=== PATIENT | female | born 1935 | race Caucasian/White ===

== ENCOUNTER 2020-04-10 10:33 | Inpatient (IN) ==
--- NOTE | 2020-04-07 14:34 | History & Physical Report ---
"Date of Service April 07, 2020 Assessment & Plan (1) Primary osteoarthritis of left knee: Treatment options were discussed. She has failed conservative therapy as above. Risks, benefits and alternatives to surgery including but not limited to infection, DVT, pain, stiffness, need for revision surgery, damage to blood vessels, damage to nerves, PE, , were discussed with the patient and they wish to proceed. Plan will be for left total knee arthroplasty at [facility] on 04/10/20. Will plan on Aspirin 81mg BID x 30 days post op for DVT prophylaxis. Will plan on inpatient rehab at [facility] post discharge from the hospital. All questions answered. She will follow up post operatively. COVID testing completed today. History of Present Illness Chief Complaint: Left knee pain Primary Care Provider: Anand Summers MD Patient is an 84 year old female with PMHx significant for CAD with ID, HTN, high cholesterol, GERD with long standing history of left knee pain. She is unable to do the things she wants to do due to the knee pain. She has failed conservative therapy including antiinflammatories, rehab, activity modification, and cortisone injections. She would like to proceed with left knee replacement. Patient denies headaches, sweats, fevers, chills, double vision, blurred vision, cough, sore throat, dysphagia, chest pain, sob, wheezing, n/v/d/c, numbness, tingling, fatigue, urinary symptoms, mood disorders. ROS positive for left knee pain and stiffness. Allergies Allergy/AdvReac Type Severity Reaction Status Date / Time Penicillins Allergy Intermediate hives Verified 04/04/20 11:34 Home Medications Home Medications Medication Instructions Recorded Confirmed Type amlodipine 10 mg PO QAM 11/28/19 04/04/20 History ascorbic acid (vitamin C) [Vitamin 1 g PO QAM 11/28/19 04/04/20 History C] carvedilol 6.25 mg PO BID 11/28/19 04/04/20 History clonidine HCl 0.1 mg PO QAM 11/28/19 04/04/20 History cyanocobalamin (vitamin B-12) 1,000 mcg PO QAM 11/28/19 04/04/20 History [Vitamin B-12] lisinopril 40 mg PO QAM 11/28/19 04/04/20 History omega 6-cbc-tjp-fish oil [Fish Oil] 1 cap PO QAM 11/28/19 04/04/20 History rosuvastatin [Crestor] 5 mg PO QDD 11/28/19 04/04/20 History aspirin [Aspirin Low Dose] 81 mg PO Q OTHER DAY 12/14/19 04/04/20 History Past Med/Surg History Social History Preferred Language: Russian Communication Ability: Effective Clinical Psychologist Private Practice Required: No Beliefs That Will Affect Care: None Current Living Situation: Spouse Current Living Situation Comment: LIVES IN [facility] (PLANS TO GO TO REHAB [facility]) Feels Safe at Home: Yes Smoking Status: Never smoker Second Hand Exposure: Yes ( A CHILD) ; Hx Alcohol Use: No Hx Substance Use: No Review of Systems All systems reviewed & are unremarkable except as noted in HPI & below Physical Exam Constitutional: well developed and well nourished; no acute distress Eyes: PERRL, conjunctivae normal, anicteric sclerae ENMT: external ear and nose normal, oropharynx normal Neck: trachea midline, no thyromegaly Respiratory: normal respiratory effort, lungs clear to auscultation Cardiovascular: RRR, no murmur, no edema Musculoskeletal: Left knee: ROM 0-120 with crepitation on ROM. Mild swelling with tenderness medially and laterally. Stable to valgus and varus stress tests Skin: no rashes, warm and dry Neurologic: patellar DTR's 2+ bilat, sensation intact Psychiatric: A+Ox3, euthymic affect Results & Data Laboratory Results Name: RANJANA LARSEN Acct: [id number] Status: REG CLI : 1935 [facility] Date: 04/07/20 Age: 84 Sex: F Dis Date: Loc: Laboratory Main [place] Spec : [id number] Collected: 04/07/20 Received: 04/07/[address]: Lamont Zimmer M.D. Ordered: CBCD Test Result Flag Reference Site WBC | 7.29 | | 4.8-10.8 K/uL | RBC | 5.07 | | 4.2-5.4 M/uL | Hgb | 15.3 | | 12.0-16.0 g/dL | Hct | 47.8 | H | 37-47 % | MCV | 94.3 | | 80-100 fL | MCH | 30.2 | | 25-34 pg | MCHC | 32.0 | | 32-36 g/dL | RDW Std Dev | 47.0 | H | 36.4-46.3 fL | RDW Coeff Patria | 13.8 | | 11.5-14.5 % | Plt | 157 | | 130-400 K/uL | MPV | 11.4 | H | 7.4-10.4 fL | Neut % (auto) | 58.2 | | % | Lymp % (auto) | 30.2 | | % | Carlisle % (auto) | 10.0 | | % | Eos % (auto) | 1.2 | | % | Baso % (auto) | 0.1 | | % | Imm Gran % (aut | 0.3 | | % | | IG parameter reflects the combination of Metas, Myelos and | Promyelocytes. Neut # (auto) | 4.24 | | 1.4-6.5 K/uL | Lymph # (auto) | 2.20 | | 1.2-3.4 K/uL | Carlisle # (auto) | 0.73 | H | 0.11-0.59 K/uL | Eos # (auto) | 0.09 | | 0-0.5 K/uL | Baso # (auto) | 0.01 | | 0-0.2 K/uL | Imm Gran # (aut | 0.02 | | 0.00-0.02 K/uL | Name: RANJANA LARSEN Acct: [id number] Status: REG CLI : 1935 [facility] Date: 04/07/20 Age: 84 Sex: F Dis Date: Loc: Laboratory Main [place] Spec : [id number] Collected: 04/07/20 Received: 04/07/[address]: Lamont Zimmer M.D. Ordered: BMP, Chem Hemolysis, Alb Queries: Is Patient Fasting? No Test Result Flag Reference Site Na | 139 | | 136-145 mmol/L | K | 4.1 | | 3.5-5.1 mmol/L | Chemistry Hemolysis | | | | | Slight hemolysis is detected which may affect Potassium, | Magnesium, AST and CK. If clinically indicated, these | should be recollected. Cl | 105 | | 98-107 mmol/L | CO2 | 27 | | 21-32 mmol/L | Gap | 8.0 | | 3-11 | BUN | 21 | H | 7-18 mg/dl | Creat | 0.71 | | 0.6-1.2 mg/dl | EGFR AA | 91.3 | | | | Units: ml/min per 1.73 meters squared | | The estimated GFR (CKD-EPI equation) has not been validated | for inpatient settings and may not be an accurate reflection | of renal function in critically ill patients or those with | rapidly changing renal function (e.g. ELIESER). EGFR NICOLE | 78.8 | | | | Units: ml/min per 1.73 meters squared | | The estimated GFR (CKD-EPI equation) has not been validated | for inpatient settings and may not be an accurate reflection | of renal function in critically ill patients or those with | rapidly changing renal function (e.g. ELIESER). BUN Creat Ratio | 28.9 | H | 10-20 | Glu | 93 | | 70-99 mg/dl | Ca | 9.3 | | 8.5-10.1 mg/dl | Alb | 3.6 | | 3.4-5.0 gm/dl | Diagnostic Findings Left knee radiographs: Bone on bone lateral compartment with periarticular osteophyte formation. Spurring and joint space narrowing PF joint."
--- NOTE | 2020-04-08 09:07 | Anesthesiology Consultation ---
Date of Service April 08, 2020 Assessment & Plan Chart Review Chart Review: Acceptable Risk for Surgery and Patient NOT seen in Pre Admission Testing low risk screening, lives in [facility], thus will need AM rapid testing. Consults Requested none History Surgery Operation Date: 04/10/20 13:00 Proposed Procedures p Left Total Knee Arthroplasty - Lamont Zimmer MD Height/Weight Height: 5 ft 2 in Weight: 81.647 kg Allergies Allergy/AdvReac Type Severity Reaction Status Date / Time Penicillins Allergy Intermediate hives Verified 04/04/20 11:34 Medications Home Medications Medication Instructions Recorded Confirmed Last Taken amlodipine 10 mg PO QAM 11/28/19 04/04/20 Unknown ascorbic acid (vitamin C) [Vitamin 1 g PO QAM 11/28/19 04/04/20 Unknown C] carvedilol 6.25 mg PO BID 11/28/19 04/04/20 Unknown clonidine HCl 0.1 mg PO QAM 11/28/19 04/04/20 Unknown cyanocobalamin (vitamin B-12) 1,000 mcg PO QAM 11/28/19 04/04/20 Unknown [Vitamin B-12] lisinopril 40 mg PO QAM 11/28/19 04/04/20 Unknown omega 2-rxj-qfs-fish oil [Fish Oil] 1 cap PO QAM 11/28/19 04/04/20 Unknown rosuvastatin [Crestor] 5 mg PO QDD 11/28/19 04/04/20 Unknown aspirin [Aspirin Low Dose] 81 mg PO Q OTHER DAY 12/14/19 04/04/20 Unknown Past Medical History Medical History (Updated 04/08/20 @ 09:05 by Ana María Greene DO) CAD (coronary artery disease) S/P CO 2004. No stents placed with cardiac cath; discharged from cardiology 08/2018 (last note says to f/u PRN). Medically managed by PCP. Denies any chest pain or SOB. 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 Hyperlipidemia Hypertension Osteoarthritis Renal calculus Spinal stenosis Urinary urgency with incontinence Vaginal prolapse without uterine prolapse Exercise / Class Metabolic Activity denies SOB with walking, does not use stairs Past Family History Family History Uncle Family history of diabetes mellitus Past Surgical History Surgical History (Updated 04/08/20 @ 09:05 by Ana María Greene DO) History of cardiac cath No stents, 2004. History of partial hysterectomy History of reconstructive repair of rectocele Hx of cataract extraction Hx of cholecystectomy Hx of colonoscopy Hx of total knee arthroplasty S/P carpal tunnel release left Slow to wake up after anesthesia Social History Smoking Status: Never smoker Do You Dip or Chew Tobacco: No Hx Alcohol Use: No Hx Substance Use: No Testing Laboratory Results H/H 15.3/47.8 PLT 157 INR 1.0 K 4.1 BUN 21 Creat 0.71 gluc 93 Electrocardiogram Date: 12/14/19 Findings: + NSR @ (65bpm) and + CO (anterior, infarct age indetermined (known from 2004)) LAD PVCs noted Chest X-Ray Date: 12/14/19 Findings: + NAD and + R hemidiaphragm elevation; no pulmonary vascular congestion
[~2020-04-10 10:33] MED LIST: ACETAMINOPHEN 500 MG TAB PO SCH; BUPIVACAINE 0.5 % 5 MG/1 ML PF 10ML VIAL ONE; CLINDAMYCIN 600 MG/54 ML BAG IV SCH; CeleBREX 200 MG CAP PO SCH; EPINEPHrine INJ 1 MG/ML AMP ONE; FAMOTIDINE 20 MG TAB PO SCH; GABAPENTIN 300 MG CAP PO SCH; LR 500ML BOLUS, THEN 15ML/HR IV SCH; METOCLOPRAMIDE HCL 10 MG TABLET PO SCH; MIDAZOLAM HCL 1 MG/ML 2ML VIAL ONE; OXYCODONE HCL 10 MG TABCR (OXYCONTIN) PO SCH; ROPIVACAINE 0.5% 5 MG/ML 30 ML VIAL ONE; ROPIVACAINE 0.5% HCL/PF 150 MG, BUPIVACAINE 0.5% MPF 30 ML, EPINEPHrine 30MG/30ML (OR U... INSTIL SCH; TRANEXAMIC ACID / 0.7% NACL 1,000 MG/100 ML BAG IV SCH; TRANEXAMIC ACID 1,000 MG **IV Pre-op IV SCH
[2020-04-10] MEDS ORDERED: fentaNYL citrate 100 MCG/2 ML VIAL ONE (10:34)
--- NOTE | 2020-04-10 11:54 | History & Physical Bridge Note ---
Date of Service April 10, 2020 History & Physical Bridge Note I have examined the patient, reviewed the History & Physical and in the interval since the performance of the History & Physical I have noted the following changes of clinical significance: no changes noted
[2020-04-10] MEDS ORDERED: ONDANSETRON INJ 2 MG/ML 2 ML VIAL IV PRN ×2 (11:59→16:42)
[2020-04-10] MEDS ORDERED: PHENYLEPHRINE 100MCG/ML 5ML SYR IV PRN (11:59)
[2020-04-10] MEDS ORDERED: ATROPINE SULFATE 0.1 MG/ML 10ML SYR IV PRN (11:59)
[2020-04-10] MEDS ORDERED: HYDROmorphone INJ 1 MG/ML SYRINGE IV PRN (11:59)
[2020-04-10] MEDS ORDERED: MEPERIDINE HCL 25 MG/ML CARP/VIAL IV PRN (11:59)
[2020-04-10] MEDS ORDERED: ePHEDrine sulfate 50 MG/ML AMP IV PRN (11:59)
[2020-04-10] MEDS ORDERED: fentaNYL citrate 100 MCG/2 ML VIAL IV PRN (11:59)
[2020-04-10] MEDS ORDERED: LABETALOL HCL IV 5 MG/ML 20ML IV PRN (11:59)
[2020-04-10] MEDS ORDERED: BACITRACIN INJ 50,000 UNIT VIAL ONE (12:44)
[2020-04-10] MEDS ORDERED: ORTHO JOINT ANESTHETIC ONE (12:44)
[2020-04-10] MEDS ORDERED: ePHEDrine sulfate 50 MG/ML SYR ONE (13:49)
[2020-04-10] MEDS ORDERED: PROPOFOL IV EMULSION 10 MG/ML 20 ML VIAL IV ONE (13:49)
--- NOTE | 2020-04-10 14:32 | Operative Report ---
Post Operative Report Pre & Post Diagnosis Operation Date: 04/10/20 12:50 Pre-Op Diagnosis: Left Knee Osteoarthritis Post-Op Diagnosis: Left Knee Osteoarthritis I identified the patient and participated in the time-out.: Yes Procedure Operation Date: 04/10/20 12:50 Actual Procedures p Left Total Knee Arthroplasty(Left) - Lamont Zimmer MD Surgeon Lamont Zimmer MD Head Butler Cristino Osborn PA-C Estimated Blood Loss 20 Findings Consistent with Post-Op Diagnosis Specimens Bone and tissue Drains None Anesthesia Type MAC Spinal Regional Complications none Disposition Accompanied Patient To Recovery: No Disposition: Recovery Room Indications The patient is an 84-year-old female much arthritic change in left knee. She is mwki-wk-zdew lateral compartment with arthritic change in all 3 compartments. She is failed conservative measures including injection, anti-inflammatories, rehab. She wishes to proceed left total knee arthroplasty. Description of Procedure Risks benefits and alternatives of surgery including but not limited to infection, DVT, pain, stiffness, need for surgery, damage to blood vessels, damage to nerves or risks of anesthesia were discussed with the patient and they wished to proceed. The patient was identified and the laterality was confirmed and marked. They received a preoperative antibiotic as well as a spinal anesthetic and an abductor canal block. A well-padded tourniquet was applied and then the limb was prepped and draped in standard manner with ChloraPrep. The limb was exsanguinated and the tourniquet was inflated. I made a standard anterior incision. I sharply incised the skin then utilized Bovie electrocautery to achieve hemostasis. I made a medial parapatellar arthrotomy and mobilized the patella laterally. I then excised the anterior horns of the medial and lateral meniscus as well as the infrapatellar fat pad. I elevated a portion of the MCL off of the tibia. I then pinned into place a patient-matched distal femoral cutting guide and made my distal femoral resection. I then pinned into place the 5 in 1 femoral cutting guide. I made my anterior, posterior and chamfer cuts. I then excised the cruciates and the remaining portions of the menisci. I then pinned into place a patient- matched tibial cutting guide and made my tibial resection. I then pinned into place the tibial plate a utilizing alignment edgar to confirm rotation. I then cut for the post. Utilizing a lamina psychiatric aides teacher and I then removed posterior osteophytes off the femur. I then placed a trial femur into position and cut for the trochlear component. I then sequentially trialed to size the polyethylene until there was good soft tissue balancing and range of motion. I then prepared the patella with a freehand cut utilizing sagittal saw. I sized and drilled for the patella. There was good tracking to the patella no lateral release was needed. All the trial components were removed. The deep tissues were anesthetized with an ortho mix solution. Then with Simplex HV with gentamicin cement, I cemented my definitive components. Definitive components, Wells and Nephew Stephanie 2: Femur 5 Tibia 4 Poly 13 Patella 32 oval A betadine soak was performed. The arthrotomy was closed with interrupted #1 Vicryl suture subcutaneous tissue was closed with interrupted 2-0 Vicryl suture. The skin was closed with with ileana. An Acticoat and Jayla dressing were placed. Sterile dressings were applied. All needle and sponge counts were correct at the end of the procedure patient was transferred to the PACU in stable condition without apparent complication. The PA-C was necessary for assistance with procedure for assistance in pos itioning, prepping, draping, retraction and closure. I attest to the content of the Intraoperative Record and any orders documented therein. Any exceptions are noted below.
--- NOTE | 2020-04-10 15:50 | Anesthesiology Progress Note ---
Date of Service April 10, 2020 Anesthesia Post Procedure Vital Signs Vital Signs: Temp Pulse Pulse Resp BP Pulse Ox 04/10/20 15:40 36.8 C 68 18 118/57 L 94 04/10/20 15:30 67 16 125/65 94 04/10/20 15:20 66 20 126/58 L 95 04/10/20 15:12 36.8 C 67 18 126/65 98 04/10/20 12:00 20 156/103 H 96 04/10/20 11:47 36.8 C 56 L 18 173/68 H 98 Transfer of Care Handoff Completed per policy Notes Mental Status: alert / awake / arousable Patient Amnestic to Procedure: Yes Nausea / Vomiting: adequately controlled Pain: adequately controlled Airway Patency, RR, SpO2: stable & adequate BP & HR: stable & adequate Hydration State: stable & adequate Neuraxial Anesthesia: was administered and sensory block is resolving Anesthetic Complications: no major complications apparent
--- NOTE | 2020-04-10 16:05 | XRay Report ---
XR knee LT 1 or 2V routine CLINICAL HISTORY: Surgical Post Op COMPARISON: None. DISCUSSION: Anatomic alignment posttotal left knee arthroplasty. Good contact between prosthetic in t he Bone. Expected postoperative soft tissue change IMPRESSION: Anatomic alignment posttotal left knee arthroplasty. ACT 112: Negative or not required by law. The above report was generated using voice recognition software. It may contain grammatical, syntax or spelling errors. Electronically signed by: Sterling Mason M.D. 04/10/2020 4:04 PM
[2020-04-10] MEDS ORDERED: bisacodyL 10 MG SUPP PR PRN (16:42)
[2020-04-10] MEDS ORDERED: METOCLOPRAMIDE HCL INJ 5 MG/ML 2 ML VIAL IV PRN (16:42)
[2020-04-10] MEDS ORDERED: MAGNESIUM HYDROXIDE SUSP 30 ML UDC PO PRN (16:42)
[2020-04-10] MEDS ORDERED: NALOXONE HCL 0.4 MG/1 ML VIAL/CARP IV PRN (16:42)
[2020-04-10] MEDS ORDERED: OXYCODONE HCL IR 5 MG TAB (IMMEDIATE RELEASE) PO PRN (16:42)
[2020-04-10] MEDS ORDERED: HYDROmorphone INJ 0.5 MG/0.5 ML SYR IV PRN (16:42)
[2020-04-10] MEDS ORDERED: VANCOMYCIN CONSULT ACTIVE PRN (16:42)
[2020-04-10] MEDS: SODIUM CHLORIDE 0.9% 1000ML 1,000 ML IV SCH (17:02)
--- NOTE | 2020-04-10 17:19 | Hospitalist Consultation ---
Date of Consultation April 10, 2020 Assessment & Plan (1) Status post left knee replacement: This 84yo F with PMH of CAD, HTN, HLD and other medical problems listed below who is POD#0 s/p L TKA by Dr. Zimmer. -POD#0 s/p L TKA by Dr. Zimmer -Pt is doing well post-operatively -Per ortho for pain control, wound care, anticoagulation and activities -Monitor H&H (EBL 20ml), continue incentive spirometry, PT/OT when appropriate -Nausea following anesthesia today. Improved with PRN Zofran (2) Hypertension: Normotensive. Continue amlodipine, carvedilol and clonidine -Plan to hold AM dose of lisinopril until BMP results (3) CAD (coronary artery disease): (4) Hx of myocardial infarction: H/o GA in 2004, cardiac cath at that time but no stents placed -Asymptomatic. Continue aspirin, statin and carvedilol DVT Ppx: Aspirin 81mg BID PCP: Kristopher Dispo: Per orthopedic surgery Patient seen in collaboration with Dr. Barrera. Please see addendum. Supervising Physician Co-Signing Physician Notes Patient is an 84-year-old female with history of CAD, hypertension, hyperlipidemia and other medical problems was seen and examined postop after having left total knee arthroplasty by since about today. Patient is noted to have nausea with minimal vomiting. Likely secondary to pain medications. She denies any chest pain, shortness of breath, abdominal pain, dizziness. On exam patient is moderately built and nourished, no apparent distress, normocephalic atraumatic, lungs are clear to auscultation, normal breath sounds, S1-S2, +murmur, abdomen soft, nontender, normal bowel sounds, no pedal edema, grossly no focal neurological deficits, left knee surgical site in dressing. Patient is consulted for postop medical management S/P L knee TKA by POD #0. Pain control, activity, DVT prophylaxis, wound care as per primary team. Continue bowel regimen to prevent constipation. Monitor for postop anemia CBC daily. Sinus bradycardia noted likely due to postop state. Continue carvedilol with holding parameters. Antiemetics as needed for nausea/vomiting. Advance diet as tolerated. I personally reviewed the record. Patient is interviewed and examined at bedside. Patient's care is coordinated with Lotus Thornton PA-C. Please refer to the documentation above for details of patient's presentation and for discussion of other issues. History of Present Illness Reason for Consultation: post op medical mgmt Attending Physician: Lamont Zimmer MD History of Present Illness This 84yo F with PMH of CAD, HTN, HLD and other medical problems listed below who is POD#0 s/p L TKA by Dr. Zimmer. Patient is feeling well postoperatively except for some nausea with 2 small episodes of bilious content. Feeling better after antiemetic. Denies any surgical site pain. Resting and denies any other issues. No fever, chills, lightheadedness, headache, chest pain, shortness of breath, abdominal pain, dysuria, diarrhea or constipation. PCP is Dr. Summers. Lives in [facility]. Pre-op COVID test negative on April 07, 2020. Allergies Allergy/AdvReac Type Severity Reaction Status Date / Time Penicillins Allergy Intermediate hives Verified 04/10/20 11:09 Home Medications Home Medications Medication Instructions Recorded Confirmed Type amlodipine 10 mg PO QAM 11/28/19 04/10/20 History ascorbic acid (vitamin C) [Vitamin 1 g PO QAM 11/28/19 04/10/20 History C] carvedilol 6.25 mg PO BID 11/28/19 04/10/20 History clonidine HCl 0.1 mg PO QAM 11/28/19 04/10/20 History cyanocobalamin (vitamin B-12) 1,000 mcg PO QAM 11/28/19 04/10/20 History [Vitamin B-12] lisinopril 40 mg PO QAM 11/28/19 04/10/20 History omega 7-jhm-etj-fish oil [Fish Oil] 1 cap PO QAM 11/28/19 04/10/20 History rosuvastatin [Crestor] 5 mg PO QDD 11/28/19 04/04/20 History aspirin [Aspirin Low Dose] 81 mg PO Q OTHER DAY 12/14/19 04/10/20 History Patient History Medical History CAD (coronary artery disease) S/P GA 2004. No stents placed with cardiac cath; discharged from cardiology 08/2018 (last note says to f/u PRN). Medically managed by PCP. Denies any chest pain or SOB. 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 Hyperlipidemia Hypertension Osteoarthritis Renal calculus Spinal stenosis Urinary urgency with incontinence Vaginal prolapse without uterine prolapse Surgical History History of cardiac cath No stents, 2004. History of partial hysterectomy History of reconstructive repair of rectocele Hx of cataract extraction Hx of cholecystectomy Hx of colonoscopy Hx of total knee arthroplasty S/P carpal tunnel release left Slow to wake up after anesthesia Family History Uncle Family history of diabetes mellitus Social History Preferred Language: Micronesian Communication Ability: Effective Cane Splicer Required: No Beliefs That Will Affect Care: None Current Living Situation: Spouse Current Living Situation Comment: LIVES IN [facility] (PLANS TO GO TO [facility]HAB [facility]) Feels Safe at Home: Yes Safety Concerns: Feels Safe At This Time Smoking Status: Never smoker Do You Dip or Chew Tobacco: No ; Second Hand Exposure: Yes ( A CHILD) ; Tobacco Cessation Education Requested by Patient: No Hx Alcohol Use: No Hx Substance Use: No Review of Systems Review of Systems: At least ten systems reviewed and negative except as noted in the HPI. Physical Exam Physical Exam: General Appearance: WD/WN, vitals as above, NAD, sitting up in bed, pleasant, conversing easily Head: normocephalic, atraumatic Eyes: normal inspection, PERRL, conjunctivae normal, anicteric sclerae ENT: external ear and nose normal, oropharynx normal Neck: trachea midline, no thyromegaly normal visual inspection Respiratory: normal respiratory effort, lungs clear to auscultation, no wheeze, rales, rhonchi Cardiovascular: regular rate, rhythm, no murmur appreciated, normal peripheral pulses Chest: normal inspection of chest Abdomen/GI: normal bowel sounds, soft, nontender, no hepatosplenomegaly Extremities/Musculoskeletal: L knee with surgical dressing clean, dry, intact. Extremities motor strength 5/5 Neurologic: PERRL, EOMI,no dysarthria, CN's II-XI intact bilaterally and moves all extremities Psychiatric: A+Ox3, euthymic affect Skin: no rashes, normal color, warm/dry Results & Data Results & Data ([facility]) Vital Signs (Past 12 Hours) Vital Signs Temp Pulse Pulse Resp BP BP Pulse Ox 04/10/20 17:05 36.4 C L 63 14 116/73 97 04/10/20 16:44 36.4 C L 66 16 152/83 H 97 04/10/20 16:25 36.8 C 56 L 18 115/74 93 04/10/20 16:10 55 L 16 117/54 L 94 04/10/20 16:00 54 L 18 113/62 94 04/10/20 15:50 57 L 16 123/58 L 93 04/10/20 15:40 36.8 C 68 18 118/57 L 94 04/10/20 15:30 67 16 125/65 94 04/10/20 15:20 66 20 126/58 L 95 04/10/20 15:12 36.8 C 67 18 126/65 98 04/10/20 12:00 20 156/103 H 96 04/10/20 11:47 36.8 C 56 L 18 173/68 H 98
[2020-04-10] MEDS: ROSUVASTATIN CALCIUM 5 MG TAB PO SCH (18:20)
[2020-04-10] MEDS ORDERED: VANCOMYCIN HCL 1,250 MG in SODIUM CHLORIDE 0.9% 250 ML IV ONE (20:00)
[2020-04-10] MEDS: ACETAMINOPHEN 500 MG TAB PO SCH (21:19)
[2020-04-10] MEDS: CeleBREX 200 MG CAP PO SCH (21:19)
[2020-04-10] MEDS: ASPIRIN 81 MG ECTAB PO SCH (21:19)
[2020-04-10] MEDS: DOCUSATE SODIUM 100 MG CAP PO SCH (21:19)
[2020-04-10] MEDS: SENNA 8.6 MG TAB PO SCH (21:19)
[2020-04-10] MEDS: carvediloL 6.25 MG TAB PO SCH (21:19)
[2020-04-11] MEDS: SODIUM CHLORIDE 0.9% 1000ML 1,000 ML IV SCH (02:59)
[2020-04-11] MEDS: ACETAMINOPHEN 500 MG TAB PO SCH ×3 (05:56→21:37)
[2020-04-11 06:12] LABS: Hematocrit (blood only) 37.9 % (37-47); Hemoglobin 12.3 g/dL (12.0-16.0); Mean Corpuscular Hemoglobin 29.9 pg (25-34); Mean Corpuscular Hgb Conc 32.5 g/dL (32-36); Mean Platelet Volume 10.4 fL (7.4-10.4); Platelet Count 111 K/uL (130-400); RDW Coefficient of Variation 13.3 % (11.5-14.5); RDW Standard Deviation 44.5 fL (36.4-46.3); Red Blood Count 4.12 M/uL (4.2-5.4); White Blood Count 8.49 K/uL (4.8-10.8)
[2020-04-11 06:41] LABS: BUN Creatinine Ratio 26.7 (10-20); Calcium 8.3 mg/dl (8.5-10.1); Creatinine Clr Calc Pharmacy 71.3 ml/min; Est GFR (African American) 98.2; Est GFR (Non-African American) 84.8; Potassium 4.8 mmol/L (3.5-5.1)
--- NOTE | 2020-04-11 07:49 | Orthopedic Progress Note ---
Date of Service April 11, 2020 Assessment & Plan (1) Status post left knee replacement: POD#1 Left TKA -PT/OT -DVT prophylaxis-SCDs, TEDs, ASA 81mg BID -Pain management -AM labs- hemoglobin at 12.3 from 15.3, acute blood loss anemia likely due to surgical loss vs dilutional -D/C planning-planning on discharge to inpatient rehab at [facility]. Patient is a resident of [facility] and states this is already set up. Will plan on discharge likely tomorrow. Admission and Anticipated Discharge Date Admission Date: April 10, 2020 Subjective Patient seen resting in bed, comfortable. She is doing okay, no complaints. Did have some nausea yesterday but this has resolved. Denies chest pain, sob, light headedness, dizziness. Review of Systems Review of Systems: All systems reviewed & are unremarkable except as noted in HPI & below Physical Exam Physical Exam: Left knee dressing is c/d/i, toes mobile with good dorsiflexion, no calf tenderness. Distally n/v status and sensation intact. Constitutional: well developed and well nourished; no acute distress Results & Data ([facility]) Vital Signs (Past 12 Hours) Vital Signs Temp Pulse Pulse Resp BP Pulse Ox 04/11/20 07:27 36.2 C L 52 L 16 123/73 93 04/11/20 06:00 93 04/11/20 03:01 36.8 C 53 L 18 122/70 93 04/11/20 00:03 52 L 04/10/20 23:24 36.3 C L 47 L 16 115/71 97 04/10/20 21:16 54 L 14 126/75 96 Laboratory Results H & H 04/11/20 Range/Units 05:54 Hgb 12.3 (12.0-16.0) g/dL Hct 37.9 (37-47) %
[2020-04-11] MEDS: DOCUSATE SODIUM 100 MG CAP PO SCH ×2 (09:00→21:36)
[2020-04-11] MEDS: ASPIRIN 81 MG ECTAB PO SCH ×2 (09:00→21:36)
[2020-04-11] MEDS: CeleBREX 200 MG CAP PO SCH ×2 (09:01→21:36)
[2020-04-11] MEDS: MULTIVITAMIN TAB PO SCH (09:01)
[2020-04-11] MEDS: ASCORBIC ACID 500 MG TAB PO SCH (09:01)
[2020-04-11] MEDS: CYANOCOBALAMIN 500 MCG TABLET (VITAMIN B-12) PO SCH (09:02)
[2020-04-11] MEDS: cloNIDine HCL 0.1 MG TAB PO SCH (09:08)
[2020-04-11] MEDS: carvediloL 6.25 MG TAB PO SCH ×2 (09:09→21:34)
[2020-04-11] MEDS: AMLODIPINE BESYLATE 5 MG TAB PO SCH (09:09)
--- NOTE | 2020-04-11 17:39 | Hospitalist Progress Note ---
Date of Service April 11, 2020 Assessment & Plan (1) Status post left knee replacement: This 84yo F with PMH of CAD, HTN, HLD and other medical problems listed below who is POD#0 s/p L TKA by Dr. Zimmer. -POD#1 s/p L TKA by Dr. Zimmer -Pt is doing well post-operatively -Per ortho for pain control, wound care, anticoagulation and activities--cont scheduled Tylenol -Monitor H&H (EBL 20ml), continue incentive spirometry, PT/OT when appropriate (2) Hypertension: BP at goal, cont amlodipine, carvedilol and clonidine per home regimen. (3) CAD (coronary artery disease): chronic, stable. No chest pain. Continue aspirin, statin, BB and ACEI. (4) DVT prophylaxis: ASA 81mg PO bID Full Code Dispo-per Ortho DO Denae Bui Hospitalist Admission and Anticipated Discharge Date Admission Date: April 10, 2020 Subjective Pt feels well postop Pain well managed Ambulating as tolerated Denies numbness or tingling in legs Tolerating PO Review of Systems Review of Systems: All systems reviewed & are unremarkable except as noted in Subjective Physical Exam Physical Exam: CONSTITUTIONAL: WNWD, vitals as above, generally well- appearing EYES: normal conjunctivae, no scleral icterus ENT: external ear and nose normal, MMM RESPIRATORY: clear to auscultation bilaterally, no crackles, rales or wheezes, normal respiratory effort CARDIOVASCULAR: regular rate and rhythm, S1 and 2 heard without murmurs, gallops or rubs, no JVD, no peripheral edema GASTROINTESTINAL: normal bowel sounds, soft, nontender, nondistended MUSCULOSKELETAL: strength 5/5 throughout, head is normocephalic and atraumatic, neck supple, normal palpation of chest wall without tenderness SKIN: warm and dry NEUROLOGIC: CN 2-12 grossly intact, no sensory deficit, normal cognition, normal speech, no gross focal deficits. PSYCHIATRIC: alert cooperative and oriented to person, place and time. Results & Data Results & Data ([facility]) Vital Signs (Past 12 Hours) Vital Signs Temp Pulse Resp BP BP Pulse Ox 04/11/20 15:18 36.3 C L 56 L 16 109/68 95 04/11/20 11:08 36.5 C 55 L 18 105/51 L 99 04/11/20 09:08 72 150/71 H 04/11/20 07:27 36.2 C L 52 L 16 123/73 93 04/11/20 06:00 93 Laboratory Results Short CBC 04/11/20 Range/Units 05:54 WBC 8.49 (4.8-10.8) K/uL Hgb 12.3 (12.0-16.0) g/dL Hct 37.9 (37-47) % Plt Count 111 L (130-400) K/uL BMP 04/11/20 05:54 Sodium 140 Potassium 4.8 Chloride 109 H Carbon Dioxide 27 BUN 16 Creatinine 0.59 L Glucose 126 H Calcium 8.3 L Medications Administered Current Inpatient Medications Acetaminophen (Tylenol) 1,000 mg PO Q8 [facility] Stop: 05/10/20 21:59 Last Admin: 04/11/20 13:28 Dose: 1,000 mg Documented by: Amlodipine Besylate (Norvasc) 10 mg PO QAM [facility] Stop: 05/11/20 08:59 Last Admin: 04/11/20 09:09 Dose: 10 mg Documented by: Ascorbic Acid (Vitamin C) 1,000 mg PO QAM [facility] Stop: 05/11/20 08:59 Last Admin: 04/11/20 09:01 Dose: 1,000 mg Documented by: Aspirin (Ecotrin Ectab) 81 mg PO BID [facility] Stop: 05/10/20 20:59 Last Admin: 04/11/20 09:00 Dose: 81 mg Documented by: Bisacodyl (Dulcolax) 10 mg [place] DAILY PRN PRN Reason: Constipation Stop: 05/10/20 16:41 Carvedilol (Coreg) 6.25 mg PO BID [facility] Stop: 05/10/20 20:59 Last Admin: 04/11/20 09:09 Dose: 6.25 mg Documented by: Celecoxib (Celebrex) 200 mg PO BID [facility] Stop: 05/10/20 20:59 Last Admin: 04/11/20 09:01 Dose: 200 mg Documented by: Clonidine HCl (Catapres) 0.1 mg PO QAM [facility] Stop: 05/11/20 08:59 Last Admin: 04/11/20 09:08 Dose: 0.1 mg Documented by: Cyanocobalamin (Vitamin B-12) 1,000 mcg PO QAM [facility] Stop: 05/11/20 08:59 Last Admin: 04/11/20 09:02 Dose: 1,000 mcg Documented by: Docusate Sodium (Colace) 100 mg PO BID [facility] Stop: 05/10/20 20:59 Last Admin: 04/11/20 09:00 Dose: 100 mg Documented by: Hydromorphone HCl (Dilaudid) 0.5 mg IV Q4H PRN PRN Reason: Pain or Pre PT Stop: 04/24/20 16:41 Lisinopril (Zestril) 40 mg PO QAM [facility] Stop: 05/11/20 08:59 Magnesium Hydroxide (Milk Of Magnesia) 30 ml PO Q6H PRN PRN Reason: Constipation Stop: 05/10/20 16:41 Metoclopramide HCl (Reglan) 10 mg IV Q6H PRN PRN Reason: Nausea And Vomiting Stop: 05/10/20 16:41 Last Admin: 04/10/20 18:20 Dose: 10 mg Documented by: Multivitamins ([facility]ivitamin Tab) [facility] Stop: 05/11/20 08:59 Last Admin: 04/11/20 09:01 Dose: 1 tab Documented by: Naloxone HCl (Narcan) 0.1 mg IV Q5M PRN PRN Reason: Oversedation/Resp Depression Stop: 05/10/20 16:41 Ondansetron HCl (Zofran) 4 mg IV Q6H PRN PRN Reason: Nausea And Vomiting Stop: 05/10/20 16:41 Last Admin: 04/10/20 17:12 Dose: 4 mg Documented by: Oxycodone HCl (Roxicodone Immediate Rel) 5 - 10 mg PO Q4H PRN PRN Reason: Pain or Pre PT Stop: 04/24/20 16:41 Rosuvastatin Calcium (Crestor) 5 mg PO QDD [facility] Stop: 05/10/20 17:14 Last Admin: 04/10/20 18:20 Dose: 5 mg Documented by: Sennosides (Senokot) 17.2 mg PO HS [facility] Stop: 05/10/20 20:59 Last Admin: 04/10/20 21:19 Dose: 17.2 mg Documented by:
[2020-04-11] MEDS: ROSUVASTATIN CALCIUM 5 MG TAB PO SCH (18:13)
[2020-04-11] MEDS: SENNA 8.6 MG TAB PO SCH (21:35)
[2020-04-12] MEDS: ACETAMINOPHEN 500 MG TAB PO SCH ×3 (06:02→22:18)
[2020-04-12] MEDS: carvediloL 6.25 MG TAB PO SCH ×2 (09:24→20:20)
[2020-04-12] MEDS: AMLODIPINE BESYLATE 5 MG TAB PO SCH (09:24)
[2020-04-12] MEDS: DOCUSATE SODIUM 100 MG CAP PO SCH ×2 (09:25→20:19)
[2020-04-12] MEDS: lisinopriL 40 MG TAB PO SCH (09:25)
[2020-04-12] MEDS: cloNIDine HCL 0.1 MG TAB PO SCH (09:25)
[2020-04-12] MEDS: ASPIRIN 81 MG ECTAB PO SCH ×2 (09:25→20:18)
[2020-04-12] MEDS: CeleBREX 200 MG CAP PO SCH ×2 (09:26→20:19)
[2020-04-12] MEDS: MULTIVITAMIN TAB PO SCH (09:26)
[2020-04-12] MEDS: ASCORBIC ACID 500 MG TAB PO SCH (09:26)
[2020-04-12] MEDS: CYANOCOBALAMIN 500 MCG TABLET (VITAMIN B-12) PO SCH (09:26)
--- NOTE | 2020-04-12 10:04 | Orthopedic Progress Note ---
Date of Service April 12, 2020 Assessment & Plan (1) Status post left knee replacement: POD#2 Left TKA -PT/OT -DVT prophylaxis-SCDs, TEDs, ASA 81mg BID -Pain management as written -D/C planning-planning on discharge to inpatient rehab at [place]. Patient is a resident of [place] and states this is already set up. Will plan on discharge today. Admission and Anticipated Discharge Date Admission Date: April 10, 2020 Subjective Postop day 2 Patient is currently sitting up in her chair at the bedside. Dates she is eaten breakfast this morning. Hoping to go to her care home facility today. She denies any shortness of breath, chest pain, lightheadedness. Denies nausea or vomiting. Pain is controlled and she is actively flexing and extending the l eft knee at this time. Physical Exam Physical Exam: Dressings are clean, dry, and intact. [place] is functioning. Neurovascular is intact. Calves are soft nontender. He has good dorsiflexion and plantarflexion of the operative side. Results & Data ([facility]) Vital Signs (Past 12 Hours) Vital Signs Temp Pulse Pulse Resp BP BP Pulse Ox 04/12/20 09:19 55 L 139/78 04/12/20 07:33 36.3 C L 53 L 18 144/77 H 90 04/11/20 23:10 36.3 C L 74 16 122/69 91
--- NOTE | 2020-04-12 15:39 | Hospitalist Progress Note ---
Date of Service April 12, 2020 Assessment & Plan (1) Status post left knee replacement: This 84yo F with PMH of CAD, HTN, HLD and other medical problems listed below who is POD#2 s/p L TKA by Dr. Zimmer. -POD#2 s/p L TKA by Dr. Zimmer -Pt is doing well post-operatively -Per ortho for pain control, wound care, anticoagulation and activities--cont scheduled Tylenol -Monitor H&H (EBL 20ml), continue incentive spirometry, PT/OT when appropriate (2) Hypertension: BP at goal, cont amlodipine, carvedilol and clonidine per home regimen. (3) CAD (coronary artery disease): chronic, stable. No chest pain. Continue aspirin, statin, BB and ACEI. (4) DVT prophylaxis: ASA 81mg PO BID Full Code Dispo-per Ortho DO Denae Bui Hospitalist Admission and Anticipated Discharge Date Admission Date: April 10, 2020 Subjective Had a good night and reports no pain Became very upset about the need to stay in the hospital until her covid test was definitely back She slammed the desk in front of her and became very aggressive with her words, slamming the phone down. She was upset even after we gave her reassurance regarding insurance coverage for her hospital stay. I contacted vocational case manager who will come and explain things for her. Review of Systems Review of Systems: All systems reviewed & are unremarkable except as noted in Subjective Physical Exam Physical Exam: CONSTITUTIONAL: WNWD, vitals as above EYES: normal conjunctivae, no scleral icterus ENT: external ear and nose normal, MMM RESPIRATORY: clear to auscultation bilaterally, no crackles, rales or wheezes, normal respiratory effort CARDIOVASCULAR: regular rate and rhythm, S1 and 2 heard without murmurs, gallops or rubs, no JVD, no peripheral edema GASTROINTESTINAL: normal bowel sounds, soft, nontender, nondistended MUSCULOSKELETAL: strength 5/5 throughout, head is normocephalic and atraumatic SKIN: warm and dry NEUROLOGIC: CN 2-12 grossly intact, no sensory deficit, normal cognition, normal speech, no gross focal deficits. PSYCHIATRIC: alert cooperative and oriented to person, place and time. Results & Data Results & Data ([facility]) Vital Signs (Past 12 Hours) Vital Signs Temp Pulse Pulse Resp BP BP Pulse Ox 04/12/20 11:47 36.3 C L 55 L 18 139/78 90 04/12/20 09:19 55 L 139/78 04/12/20 07:33 36.3 C L 53 L 18 144/77 H 90 Medications Administered Current Inpatient Medications Acetaminophen (Tylenol) 1,000 mg PO Q8 [facility] Stop: 05/10/20 21:59 Last Admin: 04/12/20 14:27 Dose: 1,000 mg Documented by: Amlodipine Besylate (Norvasc) 10 mg PO QAM [facility] Stop: 05/11/20 08:59 Last Admin: 04/12/20 09:24 Dose: 10 mg Documented by: Ascorbic Acid (Vitamin C) 1,000 mg PO QAM [facility] Stop: 05/11/20 08:59 Last Admin: 04/12/20 09:26 Dose: 1,000 mg Documented by: Aspirin (Ecotrin Ectab) 81 mg PO BID [facility] Stop: 05/10/20 20:59 Last Admin: 04/12/20 09:25 Dose: 81 mg Documented by: Bisacodyl (Dulcolax) 10 mg [place] DAILY PRN PRN Reason: Constipation Stop: 05/10/20 16:41 Carvedilol (Coreg) 6.25 mg PO BID [facility] Stop: 05/10/20 20:59 Last Admin: 04/12/20 09:24 Dose: Not Given Documented by: Celecoxib (Celebrex) 200 mg PO BID [facility] Stop: 05/10/20 20:59 Last Admin: 04/12/20 09:26 Dose: 200 mg Documented by: Clonidine HCl (Catapres) 0.1 mg PO QAM [facility] Stop: 05/11/20 08:59 Last Admin: 04/12/20 09:25 Dose: 0.1 mg Documented by: Cyanocobalamin (Vitamin B-12) 1,000 mcg PO QAM [facility] Stop: 05/11/20 08:59 Last Admin: 04/12/20 09:26 Dose: 1,000 mcg Documented by: Docusate Sodium (Colace) 100 mg PO BID [facility] Stop: 05/10/20 20:59 Last Admin: 04/12/20 09:25 Dose: 100 mg Documented by: Hydromorphone HCl (Dilaudid) 0.5 mg IV Q4H PRN PRN Reason: Pain or Pre PT Stop: 04/24/20 16:41 Lisinopril (Zestril) 40 mg PO QAM [facility] Stop: 05/11/20 08:59 Last Admin: 04/12/20 09:25 Dose: 40 mg Documented by: Magnesium Hydroxide (Milk Of Magnesia) 30 ml PO Q6H PRN PRN Reason: Constipation Stop: 05/10/20 16:41 Metoclopramide HCl (Reglan) 10 mg IV Q6H PRN PRN Reason: Nausea And Vomiting Stop: 05/10/20 16:41 Last Admin: 04/10/20 18:20 Dose: 10 mg Documented by: [facility]ivit[facility] ([facility]itamin Tab) [facility]: 05/11/20 08:59 Last Admin: 04/12/20 09:26 Dose: 1 tab Documented by: Naloxone HCl (Narcan) 0.1 mg IV Q5M PRN PRN Reason: Oversedation/Resp Depression Stop: 05/10/20 16:41 Ondansetron HCl (Zofran) 4 mg IV Q6H PRN PRN Reason: Nausea And Vomiting Stop: 05/10/20 16:41 Last Admin: 04/10/20 17:12 Dose: 4 mg Documented by: Oxycodone HCl (Roxicodone Immediate Rel) 5 - 10 mg PO Q4H PRN PRN Reason: Pain or Pre PT Stop: 04/24/20 16:41 Rosuvastatin Calcium (Crestor) 5 mg PO QDD [facility] Stop: 05/10/20 17:14 Last Admin: 04/11/20 18:13 Dose: 5 mg Documented by: Sennosides (Senokot) 17.2 mg PO HS [facility] Stop: 05/10/20 20:59 Last Admin: 04/11/20 21:35 Dose: 17.2 mg Documented by:
[2020-04-12] MEDS: ROSUVASTATIN CALCIUM 5 MG TAB PO SCH (16:06)
[2020-04-12] MEDS: SENNA 8.6 MG TAB PO SCH (20:19)
[2020-04-13] MEDS: ACETAMINOPHEN 500 MG TAB PO SCH ×3 (05:59→21:40)
--- NOTE | 2020-04-13 08:59 | Orthopedic Progress Note ---
Date of Service April 13, 2020 Assessment & Plan (1) Status post left knee replacement: POD#3 Left TKA -Covid test pending -PT/OT -DVT prophylaxis-SCDs, TEDs, ASA 81mg BID -Pain management as written -D/C planning-planning on discharge to inpatient rehab at [place]. Patient is a resident of [place] and states this is already set up. Will plan on discharge today pending COVID results. Admission and Anticipated Discharge Date Admission Date: April 10, 2020 Subjective Postop day 3 Patient is slated to go to [place] [facility] facility. It was init johannyy thought that the patient could go to the facility after having a COVID test sent without results however that was not the case. Facility requiring the most recent COVID test results being back before being sent which is understandable. Patient was upset that she could not go yesterday however she is in much better form this morning and understands. No new complaints. Denies shortness of breath, chest pain, lightheadedness. States she has some soreness in the knee but not what she would call pain. Physical Exam Physical Exam: [place] wound VAC is intact and functioning. Scant drainage noted on the dressing. Calves are soft nontender. Neurovascular is intact. Toes are mobile. She has good dorsiflexion and plantarflexion of the operative side. Results & Data ([facility]) Vital Signs (Past 12 Hours) Vital Signs Temp Pulse Resp BP Pulse Ox 04/13/20 06:57 36.5 C 62 20 148/80 H 90 04/12/20 23:29 36.6 C 61 20 128/69 93
[2020-04-13] MEDS: ASPIRIN 81 MG ECTAB PO SCH ×2 (09:17→21:39)
[2020-04-13] MEDS: carvediloL 6.25 MG TAB PO SCH ×2 (09:17→21:39)
[2020-04-13] MEDS: cloNIDine HCL 0.1 MG TAB PO SCH (09:18)
[2020-04-13] MEDS: MULTIVITAMIN TAB PO SCH (09:18)
[2020-04-13] MEDS: CYANOCOBALAMIN 500 MCG TABLET (VITAMIN B-12) PO SCH (09:18)
[2020-04-13] MEDS: AMLODIPINE BESYLATE 5 MG TAB PO SCH (09:18)
[2020-04-13] MEDS: DOCUSATE SODIUM 100 MG CAP PO SCH ×2 (09:19→21:38)
[2020-04-13] MEDS: CeleBREX 200 MG CAP PO SCH ×2 (09:19→21:41)
[2020-04-13] MEDS: ASCORBIC ACID 500 MG TAB PO SCH (09:20)
[2020-04-13] MEDS: lisinopriL 40 MG TAB PO SCH (09:20)
[2020-04-13] MEDS: ROSUVASTATIN CALCIUM 5 MG TAB PO SCH (15:42)
[2020-04-13] MEDS: SENNA 8.6 MG TAB PO SCH (21:40)
--- NOTE | 2020-04-13 23:51 | Hospitalist Progress Note ---
Date of Service April 13, 2020 Assessment & Plan (1) Status post left knee replacement: This 84yo F with PMH of CAD, HTN, HLD and other medical problems listed below who is POD#3 s/p L TKA by Dr. Zimmer. -POD#3 s/p L TKA by Dr. Zimmer -Pt is doing well post-operatively -Per ortho for pain control, wound care, anticoagulation and activities -continue incentive spirometry, PT/OT when appropriate (2) Hypertension: BP at goal, cont amlodipine, carvedilol and clonidine per home regimen. (3) CAD (coronary artery disease): chronic, stable. No chest pain. Continue aspirin, statin, BB and ACEI. (4) DVT prophylaxis: ASA 81mg PO BID Full Code Dispo-Covid negative, should be good to dc to [place]. Attempted to get her out tonight with CM, however, she is fine with leaving tomorrow. Makayla Chung DO [facility] Admission and Anticipated Discharge Date Admission Date: April 10, 2020 Subjective pt feels well today denies pain feels apologetic tolerating PO COVID- Review of Systems Review of Systems: All systems reviewed & are unremarkable except as noted in Subjective Physical Exam Physical Exam: CONSTITUTIONAL: WNWD, vitals as above EYES: normal conjunctivae, no scleral icterus ENT: external ear and nose normal, MMM RESPIRATORY: clear to auscultation bilaterally, no crackles, rales or wheezes, normal respiratory effort CARDIOVASCULAR: regular rate and rhythm, S1 and 2 heard without murmurs, gallops or rubs, no JVD, no peripheral edema GASTROINTESTINAL: normal bowel sounds, soft, nontender, nondistended MUSCULOSKELETAL: strength 5/5 throughout, head is normocephalic and atraumatic SKIN: warm and dry NEUROLOGIC: CN 2-12 grossly intact, no sensory deficit, normal cognition, normal speech, no gross focal deficits. PSYCHIATRIC: alert cooperative and oriented to person, place and time. Results & Data Results & Data ([facility]) Vital Signs (Past 12 Hours) Vital Signs Temp Pulse Pulse Resp BP Pulse Ox 04/13/20 23:03 36.5 C 81 15 101/63 94 04/13/20 15:34 36.6 C 66 16 137/83 93 Medications Administered Current Inpatient Medications Acetaminophen (Tylenol) 1,000 mg PO Q8 [facility] Stop: 05/10/20 21:59 Last Admin: 04/13/20 21:40 Dose: 1,000 mg Documented by: Amlodipine Besylate (Norvasc) 10 mg PO QAM [facility] Stop: 05/11/20 08:59 Last Admin: 04/13/20 09:18 Dose: 10 mg Documented by: Ascorbic Acid (Vitamin C) 1,000 mg PO QAM [facility] Stop: 05/11/20 08:59 Last Admin: 04/13/20 09:20 Dose: 1,000 mg Documented by: Aspirin (Ecotrin Ectab) 81 mg PO BID [facility] Stop: 05/10/20 20:59 Last Admin: 04/13/20 21:39 Dose: 81 mg Documented by: Bisacodyl (Dulcolax) 10 mg [place] DAILY PRN PRN Reason: Constipation Stop: 05/10/20 16:41 Carvedilol (Coreg) 6.25 mg PO BID [facility] Stop: 05/10/20 20:59 Last Admin: 04/13/20 21:39 Dose: 6.25 mg Documented by: Celecoxib (Celebrex) 200 mg PO BID [facility] Stop: 05/10/20 20:59 Last Admin: 04/13/20 21:41 Dose: 200 mg Documented by: Clonidine HCl (Catapres) 0.1 mg PO QAM [facility] Stop: 05/11/20 08:59 Last Admin: 04/13/20 09:18 Dose: 0.1 mg Documented by: Cyanocobalamin (Vitamin B-12) 1,000 mcg PO QAM [facility] Stop: 05/11/20 08:59 Last Admin: 04/13/20 09:18 Dose: 1,000 mcg Documented by: Docusate Sodium (Colace) 100 mg PO BID [facility] Stop: 05/10/20 20:59 Last Admin: 04/13/20 21:38 Dose: 100 mg Documented by: Hydromorphone HCl (Dilaudid) 0.5 mg IV Q4H PRN PRN Reason: Pain or Pre PT Stop: 04/24/20 16:41 Lisinopril (Zestril) 40 mg PO QAM [facility] Stop: 05/11/20 08:59 Last Admin: 04/13/20 09:20 Dose: 40 mg Documented by: Magnesium Hydroxide (Milk Of Magnesia) 30 ml PO Q6H PRN PRN Reason: Constipation Stop: 05/10/20 16:41 Metoclopramide HCl (Reglan) 10 mg IV Q6H PRN PRN Reason: Nausea And Vomiting Stop: 05/10/20 16:41 Last Admin: 04/10/20 18:20 Dose: 10 mg Documented by: Multivitamins (Multivitamin Tab) 1 tab PO QAM [facility] Stop: 05/11/20 08:59 Last Admin: 04/13/20 09:18 Dose: 1 tab Documented by: Naloxone HCl (Narcan) 0.1 mg IV Q5M PRN PRN Reason: Oversedation/Resp Depression Stop: 05/10/20 16:41 Ondansetron HCl (Zofran) 4 mg IV Q6H PRN PRN Reason: Nausea And Vomiting Stop: 05/10/20 16:41 Last Admin: 04/10/20 17:12 Dose: 4 mg Documented by: Oxycodone HCl (Roxicodone Immediate Rel) 5 - 10 mg PO Q4H PRN PRN Reason: Pain or Pre PT Stop: 04/24/20 16:41 Rosuvastatin Calcium (Crestor) 5 mg PO QDD [facility] Stop: 05/10/20 17:14 Last Admin: 04/13/20 15:42 Dose: 5 mg Documented by: Sennosides (Senokot) 17.2 mg PO HS [facility] Stop: 05/10/20 20:59 Last Admin: 04/13/20 21:40 Dose: 17.2 mg Documented by:
[2020-04-14] MEDS: ACETAMINOPHEN 500 MG TAB PO SCH (04:57)
--- NOTE | 2020-04-14 07:18 | Orthopedic Progress Note ---
Date of Service April 14, 2020 Assessment & Plan (1) Status post left knee replacement: POD#4 Left TKA -Covid test negative -PT/OT -DVT prophylaxis-SCDs, TEDs, ASA 81mg BID -Pain management as written -D/C planning-planning on discharge to inpatient rehab at [place]. Patient is a resident of [place] and states this is already set up. Discharge today. Admission and Anticipated Discharge Date Admission Date: April 10, 2020 Subjective Postop day 4 Patient's COVID test finally came back negative late yesterday afternoon. [facility] facility was not capable of accepting her without having some of her medications. The pharmacy at that time that they get the medications was closed. This morning the patient is ambulating independently in her room with her walker. She is ready to go to the skilled facility. She has no complaints. Pain is controlled. Denies shortness of breath, chest pain, lightheadedness. Physical Exam Physical Exam: [place] dressing is intact and functioning. Calves are soft nontender. Neurovascular intact. Toes are mobile. Results & Data ([facility]) Vital Signs (Past 12 Hours) Vital Signs Temp Pulse Resp BP Pulse Ox 04/13/20 23:03 36.5 C 81 15 101/63 94
[2020-04-14] MEDS: lisinopriL 40 MG TAB PO SCH (08:39)
[2020-04-14] MEDS: cloNIDine HCL 0.1 MG TAB PO SCH (08:39)
[2020-04-14] MEDS: MULTIVITAMIN TAB PO SCH (08:39)
[2020-04-14] MEDS: CYANOCOBALAMIN 500 MCG TABLET (VITAMIN B-12) PO SCH (08:40)
[2020-04-14] MEDS: carvediloL 6.25 MG TAB PO SCH (08:40)
[2020-04-14] MEDS: ASPIRIN 81 MG ECTAB PO SCH (08:40)
[2020-04-14] MEDS: ASCORBIC ACID 500 MG TAB PO SCH (08:40)
[2020-04-14] MEDS: AMLODIPINE BESYLATE 5 MG TAB PO SCH (08:41)
[2020-04-14] MEDS: DOCUSATE SODIUM 100 MG CAP PO SCH (08:41)
[2020-04-14] MEDS: CeleBREX 200 MG CAP PO SCH (08:41)
--- NOTE | 2020-04-14 14:18 | Discharge Summary ---
Date of Service April 14, 2020 Admission HPI Per Admitting Provider Patient is an 84 year old female with PMHx significant for CAD with CT, HTN, high cholesterol, GERD with long standing history of left knee pain. She is unable to do the things she wants to do due to the knee pain. She has failed conservative therapy including antiinflammatories, rehab, activity modification, and cortisone injections. She would like to proceed with left knee replacement. Patient denies headaches, sweats, fevers, chills, double vision, blurred vision, cough, sore throat, dysphagia, chest pain, sob, wheezing, n/v/d/c, numbness, tingling, fatigue, urinary symptoms, mood disorders. ROS positive for left knee pain and stiffness. Admission Exam Per Admitting Provider Constitutional: well developed and well nourished; no acute distress Eyes: PERRL, conjunctivae normal, anicteric sclerae ENMT: external ear and nose normal, oropharynx normal Neck: trachea midline, no thyromegaly Respiratory: normal respiratory effort, lungs clear to auscultation Cardiovascular: RRR, no murmur, no edema Musculoskeletal: Left knee: ROM 0-120 with crepitation on ROM. Mild swelling with tenderness medially and laterally. Stable to valgus and varus stress tests Skin: no rashes, warm and dry Neurologic: patellar DTR's 2+ bilat, sensation intact Psychiatric: A+Ox3, euthymic affect Principal Diagnosis Left knee osteoarthritis Discharge Exam Constitutional well developed and well nourished; no acute distress Eyes PERRL, conjunctivae normal, anicteric sclerae ENMT external ear and nose normal, oropharynx normal Neck trachea midline, no thyromegaly Respiratory normal respiratory effort, lungs clear to auscultation Cardiovascular RRR, no murmur, no edema Skin no rashes, warm and dry Neurologic patellar DTR's 2+ bilat, sensation intact Psychiatric A+Ox3, euthymic affect Discharge Data Allergies Allergy/AdvReac Type Severity Reaction Status Date / Time Penicillins Allergy Intermediate hives Verified 04/10/20 11:09 Consultations 04/10/20 16:42 Consult Case Management - Discharge Planning Routine Consult Hospitalist Routine Procedures Performed Operation Date: 04/10/20 12:50 Actual Procedures p Left Total Knee Arthroplasty(Left) - Lamont Zimmer MD Ordered Studies 04/10/20 05:00 US - OR guided needle placemen Routine Hospital Course (1) Status post left knee replacement: Patient presented for same day admission following left total knee arthroplasty on 04/10/20. She tolerated procedure well. The Patient had an uneventful hospital course. Post-operatively, her activity was progressed and well tolerated. They participated in PT with ambulation distance of 300 feet. ROM of operative knee reached 100 degrees. Labs remained stable- lowest hemoglobin recorded: 12.3. Dr. Briseyda Barrera of medical service was consulted for medical management during admission. Pain controlled on oral medications. Please refer to daily progress notes and PT notes for complete details. Negative Covid-19 testing was required prior to transfer to [place]. This was resulted yesterday evening. After exam on 04/14/20, patient was felt to be stable for discharge to [place] inpatient rehab/SNF. Patient will f/u in the office in about 2 weeks for further evaluation including x-rays and incision check, sooner if having any issues or concerns. Lab Results 04/11/20 04/11/20 04/11/20 Range/Units 05:54 05:54 Unknown WBC 8.49 (4.8-10.8) K/uL RBC 4.12 L (4.2-5.4) M/uL Hgb 12.3 (12.0-16.0) g/dL Hct 37.9 (37-47) % MCV 92.0 (80-100) fL MCH 29.9 (25-34) pg MCHC 32.5 (32-36) g/dL RDW Std Deviation 44.5 (36.4-46.3) fL RDW Coeff of Patria 13.3 (11.5-14.5) % Plt Count 111 L (130-400) K/uL MPV 10.4 (7.4-10.4) fL Sodium 140 (136-145) mmol/L Potassium 4.8 (3.5-5.1) mmol/L Chloride 109 H (98-107) mmol/L Carbon Dioxide 27 (21-32) mmol/L Anion Gap 5.0 (3-11) BUN 16 (7-18) mg/dl Creatinine 0.59 L (0.6-1.2) mg/dl Est Cr Clr Drug Dosing 71.3 ml/min Est GFR ( Amer) 98.2 Est GFR (Non-Af Amer) 84.8 BUN/Creatinine Ratio 26.7 H (10-20) Glucose 126 H (70-99) mg/dl Calcium 8.3 L (8.5-10.1) mg/dl SARS-CoV-2 RNA (RT-PCR) NEGATIVE (Negative) Total Time Total Time Spent Total Time Spent (In Minutes): 20 Discharge Plan Discharge Items Patient Disposition: [facility] Reason For Visit: LEFT KNEE OSTEOARTHRITIS Discharge Diagnosis: Left knee osteoarthritis Activity: Per Instructions section Weightbearing: Left weightbearing Weightbearing Comment: As tolerated with walker Non-emergency contact: Surgeon Call non-emergency contact if: your pain is not controlled, your temperature is above 101.5, your wound has increased redness and your wound has increased drainage Follow-up/Referrals: Anand Summers MD [Primary Care Provider] - Diet: Regular Addtl Attending Provider Instructions: ACTIVITY RECOMMENDATIONS: SELF CARE INSTRUCTIONS AFTER TOTAL KNEE REPLACEMENT A. You may need to continue a physical therapy program after discharge from the hospital. There are several options available to you. Your doctor will assist you in selecting the best one for you. 1. An out-patient facility 2 to 3 times a week for therapy or home therapy. 2. Continue working on all exercises taught to you in the hospital. Your goals should be to increase bending of your knee to 90 degrees and beyond and to fully straighten your knee. B. You may progress at your own pace from walking with a walker or crutches to a cane; then to no assistive devices. C. Make walking a part of your daily routine. Be up as much as comfortable with rest periods throughout the day. Rest with leg elevation is very important. Use the ice wrap frequently for the first 3-4 weeks. D. There are no restrictions on activities. You may ride in a car, shop, participate in demo coordinator and all social activities. E. Wear the long elastic stockings (JUICE hose) 20 hours a day for 2 weeks after surgery. They can be removed several times a day for laundering and for a bath. F. You may shower, no tub baths until cleared by your doctor. SPECIAL CARE INSTRUCTIONS: VERY IMPORTANT TO READ AND REVIEW A. There are a few signs you need to watch for after you are home. Call [facility] if you notice any of the followin. Increased severe knee pain. Some pain is expected especially when you exercise. 2. Increased swelling in your leg or knee; pain or swelling of the calf muscle in either lower leg. 3. Any fluid drainage from the incision. 4. Shortness of breath or chest pain. B. Please call [facility] at if you have any concerns or questions about your operation or recovery. The doctor or his nurse will return your call promptly. C. You must take antibiotics before dental work, bladder, bowel or other surgery. Your doctor will provide you with a permanent care to carry describing this precaution. IMPORTANT: * REMEMBER TO TAKE ASPIRIN, 81 MG, TWICE DAILY FOR 4 WEEKS UNLESS OTHERWISE DIRECTED. THIS IS YOUR BLOOD THINNER. * HIGH RISK PATIENTS MAY BE PRESCRIBED A STRONGER BLOOD THINNER. THIS WILL BE PROVIDED AT DISCHARGE. * CALL IF INCREASED PAIN, REDNESS, DRAINAGE OR FEVER GREATER THAT 101. * WEAR JUICE HOSE 20 HOURS PER DAY FOR 2 WEEKS. This is a large suction dressing covering your incision. This will help pull any excess drainage from the wound and allow your incision to heal properly. You may shower with this if you can keep the unit outside of the shower. If any bleeding or leakage is noted please call your doctor's office. This will remain on your incision for 7 days and then should be removed. This can be done yourself or by the home nursing staff if applicable. The entire unit is disposable once removed. Once removed, keep incision clean and dry. If redness or drainage is noted, please call your surgeon. FOLLOW UP VISIT: If appointment is not already scheduled: Please call [facility] to make a follow-up appointment for 2 weeks after your surgery at . Stand-Alone Forms: My [employer], Opioid Pain Management Skilled Items Patient informed of condition?: Yes DNR: No Discharge Level of Care: Skilled Communicable Disease: No Discharge Prognosis: Stable Lines: None Urinary Catheter: No Medications and DC Order Prescriptions: New sennosides [Senokot] 8.6 mg Tablet 17.2 mg PO HS Qty: 30 RF: 0 aspirin 81 mg Tablet,Delayed Release (Dr/Ec) 81 mg PO BID 30 Days Qty: 60 RF: 0 acetaminophen 500 mg Tablet 1,000 mg PO Q8 14 Days Qty: 84 RF: 0 Continued ascorbic acid (vitamin C) [Vitamin C] 1,000 mg Tablet 1 g PO QAM RF: 0 clonidine HCl 0.1 mg Tablet 0.1 mg PO QAM RF: 0 carvedilol 6.25 mg Tablet 6.25 mg PO BID RF: 0 cyanocobalamin (vitamin B-12) [Vitamin B-12] 1,000 mcg Tablet 1,000 mcg PO QAM RF: 0 amlodipine 10 mg Tablet 10 mg PO QAM RF: 0 lisinopril 40 mg Tablet 40 mg PO QAM RF: 0 rosuvastatin [Crestor] 5 mg Tablet 5 mg PO QDD RF: 0 Discontinued omega 4-[id number]-fish oil [Fish Oil] 1,000 mg (120 mg-180 mg) Capsule 1 cap PO QAM RF: 0 aspirin [Aspirin Low Dose] 81 mg Tablet,Delayed Release (Dr/Ec) 81 mg PO Q OTHER DAY RF: 0 Discharge Orders: Discharge Order (Routine); Ordered 04/13/20 Ordered By: Chriss Solano/Other Patient Handouts: DVT Post Op Prevention, Preventing Deep Vein Thrombosis Admission Data Admit Date/Time: 04/10/20 15:20 Attending Provider: Lamont Zimmer Admit Provider: Lamont Zimmer Primary Care Provider: Anand Summers I. Other Providers: Ghanshyam Guerra ; Makayla Chung ; Cristino Kohler Other Interventions: Discharge Summary Assessment (RN) Last Done: 04/14/20 11:49 DC Date/Time DO NOT enter until pt leaves facility: 04/14/20 13:06
== END 2020-04-14 13:06 | DRG 470 ==
LOC: ASU 10:33 → 3E 15:20